=== PATIENT | female | born 1945 | race Caucasian/White ===

== ENCOUNTER → 2017-04-02 | Outpatient (CLI) | payer MEDICARE, OTHER ==
[~2017-04-02] MED LIST: ALENDRONATE SOD70 M1 PO; B COMPLEX & B121 TAB PO; BYSTOLIC10 MG PO; CALCIUM 500 W/V1 TAB PO; CATAPRES 0.1MG0.1 MG PO; CHOLESTEROL MA600 MG PO; COMBIRESP IH; COMBIVENT INH14.7 GM IH; COZAAR100 MG PO; ECHINACEA PURPU80 MG; ECHINACEA ROOT400 MG PO; FISH OIL 1000MG1 CAP PO; FLAGYL; FLEXERIL 1010 MG/TAB PO; FOLIC ACID 40400 MCG PO; FOSAMAX 70MG TA70 MG PO; LEVAQUIN 5500 MG/TA1 PO; LEVAQUIN 750MG750 M1 PO; MAREPA1200 MG PO; METHOTREXA2.5 MG/TAB PO; METHOTREXATE2.5 M1 PO; MULTIPLE VITAMI1 CAP PO; NATURAL C500 MG PO; NORVASC2.5 MG PO; OS-CAL 500 + D1 TAB PO; PREDNISONE10 MG PO; PREDNISONE20 MG PO; RT SPIRIVA18 MCG IH; VESICARE10 MG PO; VITAMIN C500 MG PO; VITAMIN D1000 IU PO; XANAX .25M0.25 MG/TA PO; XELJANZ5 MG PO; ZITHROMAX 250M250 MG PO; ZITHROMAX Z PA250 MG PO
== END ==
LOC: MC.RAD 14:23
DX: Z12.31 Encounter for screening mammogram for malignant neoplasm of breast (principal)

== ENCOUNTER → 2017-08-14 | Outpatient (CLI) | payer MEDICARE, OTHER | LOC: COL.RAD 09:52 | DX: M06.9 Rheumatoid arthritis, unspecified (principal); M46.1 Sacroiliitis, not elsewhere classified | CPT/HCPCS: G0260; J3301 ==

== ENCOUNTER → 2018-05-14 | Outpatient (CLI) | payer MEDICARE, OTHER ==
[~2018-05-14] VITALS: Ht 160 cm; Wt 88.3 kg
[~2018-05-14] MED LIST changes: +DITROPAN XL10 MG PO; +INCRUSE EL62.5 MCG/A IH; +MASON NATURAL1200 MG PO; +NATURAL IRON65 MG PO; +PREDNISONE 5MG5 MG PO; +PROAIR HFA0.09 MG/AC IH; +RT ADVAIR HFA 1112 G IH; +ZANTAC 300300 MG PO
[2018-05-14 09:43] VITALS: BP 173/80; PULSE 78
[2018-05-14 11:15] VITALS: BP 147/72; PULSE 69
== END ==
LOC: COL.RAD 09:28
DX: M54.40 Lumbago with sciatica, unspecified side (principal); G89.29 Other chronic pain
CPT/HCPCS: J3301

== ENCOUNTER → 2018-08-06 | Outpatient (CLI) | payer MEDICARE, OTHER | LOC: MC.RAD 14:20 | DX: Z12.31 Encounter for screening mammogram for malignant neoplasm of breast (principal); N63.31 Unspecified lump in axillary tail of the right breast ==

== ENCOUNTER → 2018-08-08 | Outpatient (CLI) | payer MEDICARE, OTHER | LOC: MC.RAD 10:02 | DX: L98.9 Disorder of the skin and subcutaneous tissue, unspecified (principal); N63.10 Unspecified lump in the right breast, unspecified quadrant | CPT/HCPCS: G0279 ==

== ENCOUNTER → 2019-01-21 | Outpatient (CLI) | payer MEDICARE, OTHER ==
[~2019-01-21] VITALS: Ht 160 cm; Wt 84.8 kg
[~2019-01-21] MED LIST changes: +FOLIC ACID800 MCG PO; +MACRODANTIN100 PO
[2019-01-21 13:38] VITALS: BP 152/73; PULSE 79
[2019-01-21 14:45] VITALS: BP 147/70; PULSE 83
--- NOTE | 2019-01-21 15:00 | NUR ---
Pt out to car per wheelchair. Denies pain at this time. Pt able to ambulate without difficulty.
== END ==
LOC: COL.RAD 13:16
DX: M46.1 Sacroiliitis, not elsewhere classified (principal); M47.816 Spondylosis without myelopathy or radiculopathy, lumbar region; M48.061 Spinal stenosis, lumbar region without neurogenic claudication
CPT/HCPCS: J3301

== ENCOUNTER 2021-03-02 14:41 | Emergency (ER) | payer MEDICARE, OTHER ==
[~2021-03-02] VITALS: Ht 160 cm; Wt 81.8 kg
[2021-03-02 14:52] VITALS: TEMP 97.5
[2021-03-02 15:54] LABS: COLLECTION METHOD CLEAN CATCH
[2021-03-02 16:03] LABS: PH 6 (5-8); SQUAMOUS EPITHELIAL 0-2 /hpf; URINE APPEARANCE Clear; URINE BACTERIA Rare /hpf; URINE BILIRUBIN Negative (NEGATIVE); URINE BLOOD Negative (NEGATIVE); URINE COLOR Yellow; URINE GLUCOSE Negative (NEGATIVE); URINE KETONE Negative (NEGATIVE); URINE LEUKOCYTE ESTERASE Negative (NEGATIVE); URINE NITRATE Negative (NEGATIVE); URINE PROTEIN(semi-quant) Negative (NEGATIVE); URINE UROBILINOGEN Negative (NEGATIVE)
[2021-03-02 16:14] LABS: BASO % 0.2 % (0.0-2.0); EOS % 0.2 % (0-4.0); GRAN # 2.3 (1.4-6.5); GRAN % 58.5 % (42.2-75.2); LYMPH # 1.2 (1.2-3.4); LYMPH % 30.4 % (20.0-51.0); MEAN CELL VOLUME 100 fl (80.0-100.0); MEAN CORPUSCULAR HGB CONC 32 g/dl (33.0-37.0); MEAN PLATELET VOLUME 10.7 fl (7.4-10.4); MONO # 0.4 (0.1-0.6); MONO % 10.5 % (1.7-9.3); PLATELET COUNT 146 K/mm3 (130-400); RED BLOOD COUNT 3.01 M/mm3 (4.10-5.30); REDCELL DISTRIBUTION WIDTH-CV 16.4 % (11.5-14.5)
[2021-03-02 16:15] LABS: HEMATOCRIT 30.2 % (37.0-47.0); HEMOGLOBIN 9.6 g/dl (12.5-16.0); MEAN CORPUSCULAR HEMOGLOBIN 32 pg (27.0-31.0)
[2021-03-02 16:29] LABS: ALBUMIN 3.6 gm/dL (3.5-5.0); BILIRUBIN,TOTAL 0.2 mg/dL (0.0-1.0); C-REACTIVE PROTEIN 0.6 mg/dL (0.0-0.9); CALCIUM 9.4 mg/dL (8.4-10.2); CREATININE, serum 0.74 (0.52-1.25); TOTAL PROTEIN 6.2 gm/dL (6.4-8.2)
[2021-03-02 16:56] LABS: THYROID STIMULATING HORMONE 1.72 uIU/mL (0.465-4.680)
[2021-03-02 18:59] LABS: TROPONIN-I < 0.012 ng/mL (0.000-0.035)
[2021-03-02 19:50] VITALS: BP 155/90; PULSE 78
[2021-06-22] MEDS ORDERED: RT ADVAIR HFA 1112 G IH (09:18)
[2021-06-22] MEDS ORDERED: NORVASC 5MG5 MG/TAB PO (09:20)
[2021-06-22] MEDS ORDERED: NATURAL C500 MG PO (09:21)
[2021-06-22] MEDS ORDERED: GENTLE LAXATIVE5 MG PO (09:22)
[2021-06-22] MEDS ORDERED: B COMPLEX #11 TA1 PO (09:22)
[2021-06-22] MEDS ORDERED: KLONOPIN 0.5MG0.5 MG PO (09:23)
[2021-06-22] MEDS ORDERED: COLCRYS0.6 MG PO (09:23)
== END 2021-03-02 19:54 | disposition home or self-care (01) ==
LOC: COL.ER 14:41
PROVIDERS: Nurse Practitioner
DX: J44.9 Chronic obstructive pulmonary disease, unspecified (principal); I10 Essential (primary) hypertension; D64.9 Anemia, unspecified; Z88.1 Allergy status to other antibiotic agents; Z88.2 Allergy status to sulfonamides; Z87.891 Personal history of nicotine dependence
CPT/HCPCS: Q9967

== ENCOUNTER 2021-06-22 09:23 | Day surgery (SDC) | payer MEDICARE, OTHER ==
[~2021-06-22] VITALS: Ht 160 cm; Wt 82.1 kg
[~2021-06-22 09:23] MED LIST changes: +B COMPLEX #11 TA1 PO; +COLCRYS0.6 MG PO; +GENTLE LAXATIVE5 MG PO; +KLONOPIN 0.5MG0.5 MG PO; +NORVASC 5MG5 MG/TAB PO
[2021-06-22] MEDS ORDERED: FLEXERIL 1010 MG/TAB PO (09:24)
[2021-06-22] MEDS ORDERED: TAZTIA240 PO (09:24)
[2021-06-22] MEDS ORDERED: COLACE 100100 MG/CAP PO (09:25)
[2021-06-22] MEDS ORDERED: PROZAC 20MG20 MG PO (09:27)
[2021-06-22] MEDS ORDERED: INCRUSE EL62.5 MCG/A IH ×2 (09:27→10:14)
[2021-06-22] MEDS ORDERED: IMODIUM 2MG CAPS2 MG PO (09:29)
[2021-06-22 10:04] VITALS: BP 159/78; PULSE 70; TEMP 98.6
[2021-06-22] MEDS ORDERED: PACERONE200 MG PO (10:09)
[2021-06-22] MEDS ORDERED: DRAMAMINE LESS25 MG PO (10:16)
[2021-06-22] MEDS ORDERED: ZOFRAN ODT4 MG PO (10:17)
[2021-06-22] MEDS ORDERED: MILLIPRED DP5 MG PO (10:18)
[2021-06-22] MEDS ORDERED: PROTONIX 40MG T40 MG PO (10:18)
[2021-06-22] MEDS ORDERED: CARAFATE 1GM1 G PO (10:19)
[2021-06-22] MEDS ORDERED: PROBIOTIC BLEN1 EACH PO (10:19)
[2021-06-22 12:45] VITALS: BP 139/66; PULSE 70; TEMP 97.4
[2021-06-22 13:00] VITALS: BP 147/72; PULSE 71
[2021-06-22 13:15] VITALS: BP 154/68; PULSE 70
--- NOTE | 2021-06-22 14:34 | NUR ---
1245: PATIENT ARRIVED BACK INTO TO ROOM FOLLOWING PROCEDURE. HAND OFF RECIEVED. YVONNE (CAREGIVER) AT BEDSIDE. PATIENT AMBULATED TO CHAIR. VITALLY STABLE. RECIEVED APPLE JUICE WITH BUTTERED TOAST. 1300: TOLERATED APPLE JUICE AND TOAST WELL. VITALLY STABLE. DR. KHOURY DISCUSSED RESULTS OF THE PROCEDURE. 1315: IV REMOVED. PATIENT WENT TO RESTROOM. GOT DRESSED. GAVE DISCHARGE INSTRUCTIONS TO PATIENT AND CAREGIVER. VERBALIZED UNSTANDING TO INSTRUCTIONS. 1400: PATIENT ESCORTED TO EXIT WITH [facility].
== END 2021-06-22 14:48 ==
LOC: SDCO 09:23
DX: D12.5 Benign neoplasm of sigmoid colon (principal); K29.50 Unspecified chronic gastritis without bleeding; K64.8 Other hemorrhoids; K62.89 Other specified diseases of anus and rectum; D50.9 Iron deficiency anemia, unspecified; K92.1 Melena; K31.7 Polyp of stomach and duodenum; K44.9 Diaphragmatic hernia without obstruction or gangrene; Q27.33 Arteriovenous malformation of digestive system vessel; Z79.899 Other long term (current) drug therapy; Z87.891 Personal history of nicotine dependence
CPT/HCPCS: J2704; J7120